=== PATIENT | male | born 1975 ===

== ENCOUNTER 2021-11-03 15:53 | Emergency (ER) | payer SELFPAY ==
--- NOTE | 2021-11-03 18:33 | Emergency Department Report ---
ED Psych HPI - General Chief Complaint: Psych Stated Complaint: CHEST PAIN/HALLUCINATIONS Time Seen by Provider: 11/03/21 18:28 Source: patient, EMS Mode of arrival: Stretcher - History of Present Illness Initial Comments: 46-year-old male with a history of schizophrenia, bipolar, and schizoaffective who presents with suicidal ideation that is been going on for about a week or 2 progressively getting worse. Patient reported that his family does not love him. And that is getting no help from nobody. No other modifying or associated factors reported. MD Complaint: suicidal ideation - Related Data Allergies Allergy/AdvReac Type Severity Reaction Status Date / Time divalproex sodium Allergy Unknown Verified 11/03/21 16:19 [From Depakote] shrimp Allergy Unknown Verified 11/03/21 16:19 ED Review of Systems ROS: Stated complaint: CHEST PAIN/HALLUCINATIONS Other details as noted in HPI Comment: All other systems reviewed and negative Psychiatric: suicidal thoughts ED Past Medical Hx - Past Medical History Hx Psychiatric Treatment: Yes (schizophrena, bipolar) ED Physical Exam - General Limitations: No Limitations General appearance: alert, in no apparent distress - Head Head exam: Present: atraumatic, normal inspection - Eye Eye exam: Present: normal appearance Pupils: Present: normal accommodation - ENT ENT exam: Present: normal exam, normal orophraynx. Absent: mucous membranes moist - Neck Neck exam: Present: normal inspection, full ROM. Absent: tenderness - Respiratory Respiratory exam: Present: normal lung sounds bilaterally. Absent: respiratory distress, accessory muscle use - Cardiovascular Cardiovascular Exam: Present: regular rate, normal rhythm, normal heart sounds - GI/Abdominal GI/Abdominal exam: Present: soft, normal bowel sounds. Absent: distended, tenderness - Extremities Exam Extremities exam: Present: normal inspection, normal capillary refill. Absent: pedal edema - Back Exam Back exam: Present: normal inspection. Absent: tenderness - Neurological Exam Neurological exam: Present: alert, oriented X3 - Psychiatric Psychiatric exam: Present: normal affect, anxious - Skin Skin exam: Present: warm, normal color ED Course Vital Signs 11/03/21 16:16 Temperature 98.1 F Pulse Rate 93 H Respiratory 18 Rate Blood Pressure 128/86 [Left] O2 Sat by Pulse 98 Oximetry ED Medical Decision Making - Medical Decision Making Here with depression and feeling and suicidal thoughts--differential diagnosis, including but not limited to: Encounter for behavioral health screening examination, encounter for medical screening examination--Due to these will go ahead and other routine labs studies including CBC, CMP and UA with UDS and thyroid profile in anticipation for mental health evaluation. Assessment and plan: here with concern with depressive feeling and suicidal ideation --but noted with reassuring vital signs, in no acute distress, who is cooperative, ANO x3, not homicidal but suicidal. At this point in time, this patient is cleared medically for psychiatry evaluation and recommendation. I will go ahead and order a 1013. He has not demonstrated any witnessed behavior here in the ED that would be consistent with acute decompensated psychosis. I have ordered mental health evaluation. Will go ahead and order typical laboratory studies in anticipation of mental health requests. Laboratory studies are reviewed and are unremarkable at this time. Awaiting mental health consultation and evaluation. Ultimate disposition as per mental health team. At this point in time, this patient does not appear to have an immediate medical contraindication to psychiatric admission, evaluation, consultation and placement. Patient has had his 1013 filled out by myself. Holding orders initiated. COVID swab ordered in anticipation of psychiatric placement. As needed medications are ordered. Patient remained suitable at this time for psychiatric placement, consultation and disposition. He does not appear to have an emergent medical condition present at this time. Critical care attestation.: If time is entered above; I have spent that time in minutes in the direct care of this critically ill patient, excluding procedure time. ED Disposition Clinical Impression: Suicidal ideation Disposition: [address] [place] [address] Is pt being admited?: No Does the pt Need Aspirin: No Condition: Stable
[2021-11-03 19:52] LABS: Alanine Aminotransferase 62 units/L (7-56); Albumin 4.4 g/dL (3.9-5); BUN/Creatinine Ratio 19; Blood Urea Nitrogen 17 mg/dL (9-20); Calcium 9.8 mg/dL (8.4-10.2); Hemolysis Index 12
[2021-11-03 20:15] LABS: Basophils % (Auto) 0.4 % (0.0-1.8); Eosinophils % (Auto) 0.4 % (0.0-4.3); Hematocrit 37.6 % (35.5-45.6); Hemoglobin 11.7 gm/dl (11.8-15.2); Lymphocytes # (Auto) 1.6 K/mm3 (1.2-5.4); Lymphocytes % (Auto) 17.5 % (13.4-35.0); Mean Corpuscular HGB Conc 31 % (32-34); Mean Corpuscular Volume 75 fl (84-94); Monocytes # (Auto) 0.6 K/mm3 (0.0-0.8); Platelet Count 292 K/mm3 (140-440); Red Cell Distribution Width 14.1 % (13.2-15.2)
[2021-11-03 21:53] LABS: Bacteria,Urine 1+ /HPF (Negative); Hyaline Casts,Urine 11 /LPF; Mucus,Urine 3+ /HPF
[2021-11-03 22:03] LABS: Color,Urine Yellow (Yellow)
[2021-11-03 22:18] LABS: Amphetamine Screen,Urine PRESUMPTIVE NEGATIVE; Benzodiazepines Screen,Urine PRESUMPTIVE NEGATIVE
[2021-11-03 22:19] LABS: Cannabinoid Screen,Urine PRESUMPTIVE NEGATIVE; Cocaine Screen,Urine PRESUMPTIVE NEGATIVE; Methadone Screen,Urine PRESUMPTIVE NEGATIVE; Opiate Screen,Urine PRESUMPTIVE NEGATIVE
--- NOTE | 2021-11-04 10:16 | Consultation ---
History of Present Illness - Reason for Consult Consult date: 11/04/21 Reason for consult: suicidal ideation - History of Present Psychiatric Illness The patient is a 46 year old male with history of schizophrenia, and Bipolar disorder who presents to the ED with suicidal ideation. The patient was seen today. He is calm and cooperative. Hew reports on going suicidal ideation x2 weeks. He reports that he last received Haldol Dec 3 weeks ago in [place] and also reports running out of his cogentin. He states he has been homeless x 20 years " I travel a lot." He reports history of self harm by shoving a comb down his throat. He endorses auditory/visual hallucinations " voices telling me to commit suicide and I see spirits sometimes." He states suicidal plan as " run into traffic." PAST PSYCHIATRIC HISTORY Diagnoses: schizophrenia, Bipolar Suicide attempts or Self-harm behavior: Yes Prior psychiatric hospitalizations: Yes Substance Abuse history: Denies Previous psychiatric medications tried: Haldol dec, Cogentin Outpatient treatment: Unknown PAST MEDICAL HISTORY: None reported Family Psychiatric History: None reported or documented SOCIAL HISTORY Marital Status: single Living Arrangements: Homeless Employment Status: Unemployed Access to guns/weapons: Denies Education: GED History of Abuse: Denies Legal History: Denies REVIEW OF SYSTEMS Constitutional: Negative for weight loss ENT: Negative for stridor Respiratory: Negative for cough or hemoptysis All other systems reviewed and are negative MENTAL STATUS EXAMINATION General Appearance and Behavior: Age appropriate, good hygiene, wearing appropriate clothes, good eye contact, calm, cooperative Cooperation: Participating/engaged Psychomotor Behavior: Psychomotor normal Mood: Calm Affect and affective range: congruent with stated mood Thought Process: goal directed Thought Content: Reality oriented Speech: Normal tone and pace Suicidal Ideation: Yes Homicidal Ideation: Denies Hallucinations: AVH Delusions: None elicited Impulse Control: Normal Insight and Judgment: Limited insight and judgment Memory: Normal Attention: Attentive Orientation: Alert, oriented Assessment and Plan Schizoaffective disorder Treatment Plan 1013 Continue home Meds Risks, benefits and alternatives of medications discussed with the patient, questions answered and consent obtained from patient. PSYCHOTHERAPY: Supportive psychotherapy provided MEDICAL: Per primary team DELIRIUM PRECAUTIONS: Please re-orient patient frequently, keep lights on during the day, and minimize benzodiazepines and opiates as these medications could worsen patient's confusion. KEY OPERATOR: Defer to primary DISPOSITION:Recommend acute inpatient psychiatric hospitalization at this time. Will follow. Thank you for the consult. Please contact with any questions and/or concerns. Case staffed with Dr. Coe Medications and Allergies Allergies Allergy/AdvReac Type Severity Reaction Status Date / Time divalproex sodium Allergy Unknown Verified 11/03/21 16:19 [From Depakote] shrimp Allergy Unknown Verified 11/03/21 16:19 Home Medications Medication Instructions Recorded Confirmed Last Taken Type Benztropine Mesylate 2 mg PO BID 11/03/21 11/03/21 Unknown History haloperidoL [Haloperidol] 10 mg PO BID 11/03/21 11/03/21 Unknown History traZODone [Desyrel] 100 mg PO QHS 11/03/21 11/03/21 Unknown History Mental Status Exam - Vital signs Last Vital Signs Temp 98.7 F 11/04/21 09:42 Pulse 74 11/04/21 09:42 Resp 18 11/04/21 09:42 BP 97/50 11/04/21 09:42 Pulse Ox 99 11/04/21 09:42 Results Result Diagrams: 11/03/21 19:19 11/03/21 19:19 Abnormal lab results 11/03/21 11/03/21 11/03/21 Range/Units 19:19 19:19 19:19 Hgb 11.7 L (11.8-15.2) gm/dl MCV 75 L (84-94) fl MCH 23 L (28-32) pg MCHC 31 L (32-34) % Seg Neutrophils % 74.7 H (40.0-70.0) % Potassium (3.6-5.0) mmol/L Glucose (75-100) mg/dL ALT (7-56) units/L Salicylates 1.0 L (2.8-20.0) mg/dL Acetaminophen 5.0 L (10.0-30.0) ug/mL 11/03/21 Range/Units 19:19 Hgb (11.8-15.2) gm/dl MCV (84-94) fl MCH (28-32) pg MCHC (32-34) % Seg Neutrophils % (40.0-70.0) % Potassium 3.3 L (3.6-5.0) mmol/L Glucose 121 H (75-100) mg/dL ALT 62 H (7-56) units/L Salicylates (2.8-20.0) mg/dL Acetaminophen (10.0-30.0) ug/mL All other labs normal.
[2021-11-04] MEDS: BENZTROPINE 2 MG TAB PO SCH ×2 (10:48→23:12)
[2021-11-04] MEDS: HALOPERIDOL 5 MG TAB PO SCH ×4 (10:49→23:12)
--- NOTE | 2021-11-04 12:57 | Event Note ---
Date: 11/04/21 pt admitted to ED with SI yesterday because his family does not love him. Pt seen this morning and followed by psychiatry who recommend to continue patient current medication and as inpatient. No other issues reported this morning.
[2021-11-04] MEDS ORDERED: traZODone 100 MG TAB PO SCH (22:00)
[2021-11-05] MEDS: BENZTROPINE 2 MG TAB PO SCH (09:49)
[2021-11-05] MEDS: HALOPERIDOL 5 MG TAB PO SCH (09:51)
--- NOTE | 2021-11-05 12:36 | Event Note ---
Date: 11/05/21 Patient has a history of bipolar and presents to the emergency department for suicidal ideation. Patient has not been evaluated by psychiatry today and we are awaiting their input. Patient had no new complaints overnight.
[2021-11-05 15:20] VITALS: BP 126/70
== END 2021-11-05 18:00 ==
LOC: EEVIPCON 15:53 → ED 15:53
DX: F20.9 Schizophrenia, unspecified (principal); F31.9 Bipolar disorder, unspecified; Z20.822 Contact with and (suspected) exposure to COVID-19; Z88.8 Allergy status to other drugs, medicaments and biological substances; Z91.013 Allergy to seafood; Z79.899 Other long term (current) drug therapy
CPT/HCPCS: 36415; 80053; 80307; 81001; 85025; 99285; U0003; 80320; G0480